=== PATIENT | female | born 1985 | race Caucasian/White ===

== ENCOUNTER 2021-11-09 15:17 | Outpatient (CLI) | payer OTHER, SELFPAY ==
[2021-11-09 15:29] LABS: Ur HCG Qualitative* Negative (Negative)
[2021-11-09 22:48] LABS: HIV 1/2/P24 Combo Screen* Negative (Negative)
[2021-11-09 22:58] LABS: Hepatitis C Virus Antibody* Negative (Negative)
[2021-11-10 00:04] LABS: Chlamydia DNA Amplified* NOT DETECTED (No Detected); GC DNA Amplified* NOT DETECTED (No Detected)
== END 2021-11-09 15:18 | disposition home or self-care (01) ==
PROVIDERS: Visit Provider Nurse Practitioner Family
DX: R30.0 Dysuria (principal); N89.8 Other specified noninflammatory disorders of vagina; Z11.3 Encounter for screening for infections with a predominantly sexual mode of transmission
CPT/HCPCS: 81025; 86703; 86803; 87086; 87186; 87491; 87591